=== PATIENT | male | born 1990 | race African-American/Black ===

== ENCOUNTER 2019-05-18 10:15 | Emergency (ER) | payer MEDICAID, OTHER ==
[~2019-05-18] VITALS: Ht 165.1 cm; Wt 85.5 kg
[~2019-05-18 10:15] MED LIST: NOCURR
[2019-05-18 11:40] VITALS: BP 127/84
== END 2019-05-18 12:22 | disposition home or self-care (01) ==
LOC: EMS 10:17
DX: S76.012A Strain of muscle, fascia and tendon of left hip, initial encounter (principal); S80.212A Abrasion, left knee, initial encounter; F17.210 Nicotine dependence, cigarettes, uncomplicated; X50.0XXA Overexertion from strenuous movement or load, initial encounter; Y93.72 Activity, wrestling; Y92.89 Other specified places as the place of occurrence of the external cause; Y99.8 Other external cause status